=== PATIENT | male | born 1985 | race Caucasian/White ===

== ENCOUNTER 2016-08-06 17:13 | Emergency (ER) | payer SELFPAY ==
[2016-08-06 17:18] VITALS: BMI 29.9
[2016-08-06 17:21] VITALS: TEMP 99.3
[2016-08-06 18:27] VITALS: RESP 18
--- NOTE | 2016-08-06 21:00 | ED PDOC ---
Arrival/HPI - General Chief Complaint: Fever Time Seen by Provider: 08/06/16 17:59 Historian: Patient - History of Present Illness Narrative History of Present Illness (Text): 08/06/16 21:10 Patient with no PMH and is not a smoker, complains of 1 week history of body aches, chills, fever, fatigue, and dry cough. Otherwise: (-) vomting / diarrhea, (-) rash, (-) chest pain, (-) dyspnea, (-) hemoptysis, (-) upper back pain, (-) travel, (-) recent prolonged immobility. PMD none Past Medical History - Provider Review Nursing Documentation Reviewed: Yes - Psychiatric Hx Substance Use: No - Surgical History Hx Musculoskeletal Surgery: Yes Hx Orthopedic Surgery: Yes Family/Social History - Physician Review Nursing Documentation Reviewed: Yes Family/Social History: No Known Family HX Smoking Status: Never Smoked Hx Alcohol Use: No Hx Substance Use: No Allergies/Home Meds Allergies/Adverse Reactions: Allergies No Known Allergies Allergy (Verified 08/06/16 17:18) Review of Systems - Review of Systems Constitutional: Normal, Fatigue, Fevers. absent: Weight Change, Night Sweats ENT: Normal. absent: Voice Changes, Sore Throat, Rhinorrhea, Sinus Congestion Respiratory: Normal, Cough. absent: SOB, Sputum, Wheezing Cardiovascular: Normal. absent: Chest Pain, Palpitations Musculoskeletal: Normal. absent: Arthralgias, Back Pain, Neck Pain Skin: Normal. absent: Rash, Pruritis, Skin Lesions Neurological: Normal. absent: Headache, Dizziness, Focal Weakness Physical Exam - Physical Exam Narrative Physical Exam (Text): 08/06/16 21:08 GENERAL APPEARANCE: Patient is awake, alert, oriented x 3, in no acute distress. SKIN: Warm, dry; (-) cyanosis. EYES: (-) conjunctival pallor. ENMT: Mucous membranes moist. Airway patent: (-) stridor. Pharynx: (-) swelling, (-) erythema, (-) exudate. NECK: (-) tenderness, (-) stiffness, (-) lymphadenopathy. CHEST AND RESPIRATORY: (+) slight rhonchi to the LLL, (-) rales, (-) wheezes, ( -) pleural rub; breath sounds equal bilaterally. HEART AND CARDIOVASCULAR: (-) irregularity; (-) murmur, (-) gallop. ABDOMEN AND GI: Soft; (-) tenderness. EXTREMITIES: (-) deformity; (-) edema. NEURO AND PSYCH: Mental status as above. Cranial nerves grossly intact; strength symmetric. Vital Signs Temp Pulse Resp BP Pulse Ox 08/06/16 18:27 89 18 133/75 96 08/06/16 17:18 99.3 F 94 H 16 135/87 96 Medical Decision Making ED Course and Treatment: 08/06/16 20:53 31 yo M presents with 1 week h/o fever, chills, bodyaches, and dry cough. CXR ordered. EKG: NSR at 78bpm, (-) acute ST changes, as read by PA CXR: possible early infiltrate in the LLL, as read by PA Based on history, exam and diagnostic results plan will be for outpatient follow up. Patient states he fully agrees with and understands discharge instructions. States that he agrees with the plan and disposition. Verbalized and repeated discharge instructions and plan. I have given the patient opportunity to ask any additional questions. Follow up with the clinic in 1-2 days without fail. Advised to take medication as prescribed. Return to the emergency room at any time for any new or worsening symptoms. - RAD Interpretation Radiology Orders: 08/06/16 17:59 CHEST TWO VIEWS (PA/LAT) [RAD] Stat - Medication Orders Current Medication Orders: Discontinued Medications Acetaminophen (Tylenol 325mg Tab) 975 mg PO STAT STA Stop: 08/06/16 18:56 Last Admin: 08/06/16 20:13 Dose: 975 mg - PA / DINING [employer]EW[employer] / Resident Statement MD/DO has reviewed & agrees with the documentation as recorded. Disposition/Present on Arrival - Present on Arrival Any Indicators Present on Arrival: No History of DVT/PE: No History of Uncontrolled Diabetes: No Urinary Catheter: No History of Decub. Ulcer: No History Surgical Site Infection Following: None - Disposition Have Diagnosis and Disposition been Completed?: Yes Diagnosis: Fever, Cough Disposition: HOME/ ROUTINE Disposition Time: 22:15 Patient Plan: Discharge Patient Problems: Current Active Problems Problem Status Onset Fever Acute Cough Acute Condition: GOOD Discharge Instructions (ExitCare): Bacterial Pneumonia (ED) Print Language: [id number] Additional Instructions: Thank you for letting us take care of you today. You were treated for fever, cough, possible early pneumonia. The emergency medical care you received today was directed at your acute symptoms. If you were prescribed any medication, please fill it and take as directed. It may take several days for your symptoms to resolve. Return to the Emergency Department if your symptoms worsen, do not improve, or if you have any other problems. Please contact the clinic in 2 days for re-evaluation and follow up. Bring any paperwork you were given at discharge with you along with any medications you are taking to your follow up visit. Our treatment cannot replace ongoing medical care by a primary care provider (PCP) outside of the emergency department. Thank you for allowing the [facility] team to be part of your care today. Prescriptions: Azithromycin [Z-Jerzy] 250 mg PO DAILY #6 tab Referrals: [facility] [place] - Follow up with primary Forms: WORK NOTE
[2016-08-06 21:54] VITALS: BP 127/76; PULSE 88; O2SAT 98
--- NOTE | 2016-08-07 08:46 | RAD ---
HISTORY: cough COMPARISON: No prior. TECHNIQUE: Chest PA and lateral FINDINGS: LUNGS: No focal airspace opacity. PLEURA: No significant pleural effusion identified. No pneumothorax apparent. CARDIOVASCULAR: Normal. OSSEOUS STRUCTURES: Fixation screws and plate along the right clavicle. VISUALIZED UPPER ABDOMEN: Normal. OTHER FINDINGS: None. IMPRESSION: No focal airspace opacity.
--- NOTE | 2016-08-07 09:56 | CARD ---
APPROVED REPORT EKG Measurement Heart [id number] <Conclusion> Normal sinus rhythm Normal ECG
== END 2016-08-06 21:55 | disposition home or self-care (01) ==
LOC: ED 17:13
DX: R05 Cough (principal); R50.9 Fever, unspecified